=== PATIENT | male | born 1980 | race Two or more races ===

== ENCOUNTER 2021-03-29 19:16 | Inpatient (IN) | payer MEDICAID ==
[~2021-03-29] VITALS: Ht 170.2 cm; Wt 51.5 kg
--- NOTE | 2021-03-29 19:25 | NUR ---
PT BIB [facility] FROM HOME FOR 1 MONTH OF INTERMITTENT COUGH, FEVER AND WEAKNESS. A/O X3. NO SOB OR LABORED BREATHING, AFEBRILE. CLEAER SPEECH, COMPLETE SENTENCES.
--- NOTE | 2021-03-29 20:00 | NUR ---
DR. PASTOR AT BEDSIDE, MSE IN PROGRESS.
[2021-03-29] MEDS ORDERED: IV NORMAL SALINE 1000 ML BAG IV ONE (20:30)
[2021-03-29 20:45] LABS: MEAN CORPUSCULAR HEMOGLOBIN 26.3 uug (23.8-33.4); MEAN CORPUSCULAR VOLUME 77.3 fL (73.0-96.2); PLATELET COUNT (AUTO) 376 K/uL (152-348)
[2021-03-29 20:49] LABS: HEMATOCRIT 19.6 % (36.7-47.1)
[2021-03-29 20:52] LABS: CREATININE 0.8 mg/dL (0.6-1.3); POTASSIUM 4.1 mmol/L (3.5-5.1)
[2021-03-29 21:04] LABS: BILIRUBIN,DIRECT 0.1 mg/dL (0.0-0.2); BILIRUBIN,TOTAL 0.2 mg/dL (0.2-1.0); TOTAL PROTEIN, SERUM 6.8 g/dL (6.4-8.2)
[2021-03-29] MEDS ORDERED: ACETAMINOPHEN ES 500 MG TABLET PO ONE (21:15)
[2021-03-29] MEDS ORDERED: levoFLOXacin 750 MG/D5W 150 ML PIGGYBACK IV ONE (21:15)
[2021-03-29] MEDS ORDERED: ACETAMINOPHEN ES 500 MG TABLET ONE (21:16)
[2021-03-29] MEDS ORDERED: levoFLOXacin 750 MG TABLET ONE (21:16)
[2021-03-29] MEDS ORDERED: levoFLOXacin 750MG/D5W 150 ML IV ONE (21:20)
--- NOTE | 2021-03-29 21:39 | NUR ---
PANEL CALL, DR. GRANADOS PAGED.
[2021-03-29] MEDS ORDERED: DOXYCYCLINE HYCLATE IV 100 MG in IV DEXTROSE 5% 100 ML IV SCH (22:00)
[2021-03-29] MEDS ORDERED: SULFAMETHOXAZOL/TRIMETHOPRI IV 20 ML in IV DEXTROSE 5% 500 ML IV SCH (22:00)
[2021-03-29] MEDS ORDERED: MORPHINE SULFATE 2 MG/1 ML DISP.SYRIN IV PRN (22:00)
[2021-03-29] MEDS ORDERED: CEFEPIME HCL 2 G in IV DEXTROSE 5% 100 ML IV SCH (22:00)
[2021-03-29] MEDS ORDERED: ONDANSETRON 4 MG/2 ML VIAL IV PRN (22:00)
[2021-03-29] MEDS ORDERED: hydrALAZINE HCL 20 MG/1 ML VIAL IV PRN (22:00)
[2021-03-29] MEDS ORDERED: LABETALOL HCL 100 MG/20 ML VIAL IV PRN (22:00)
[2021-03-29 22:14] LABS: BASOPHILS % (MANUAL) 1 % (0-2); EOSINOPHILS % (MANUAL) 1 % (0-8); LYMPHOCYTES % (MANUAL) 15 % (20-40); MONOCYTES % (MANUAL) 13 % (2-10); NEUTROPHILS % (MANUAL) 70 % (42-75)
[2021-03-29 22:41] LABS: FERRITIN 693 ng/mL (26-388); LACTATE DEHYDROGENASE 304 U/L (85-227)
[2021-03-29 23:06] LABS: *BILIRUBIN,URIN NEGATIVE (NEGATIVE); *BLOOD, URINE NEGATIVE (NEGATIVE); *CLARITY,URINE CLEAR (CLEAR); *COLOR,URINE YELLOW (YELLOW); *KETONES,URINE NEGATIVE (NEGATIVE); LEUKOCYTE ESTERASE ,URINE NEGATIVE (NEGATIVE); NITRITE, URINE NEGATIVE (NEGATIVE); UGLUCOSE NEGATIVE (NEGATIVE)
[2021-03-29] MEDS ORDERED: ALBUTEROL SULFATE 2.5 MG/3 ML NEBU NEB PRN (23:15)
[2021-03-29] MEDS ORDERED: VANCOMYCIN IV 1,000 MG in IV DEXTROSE 5% 250 ML IV ONE (23:30)
[2021-03-30] VITALS (8 sets, daily range): BP systolic 89–118; BP diastolic 48–74
[2021-03-30 00:02] LABS: BILIRUBIN,DIRECT 0.1 mg/dL (0.0-0.2); BILIRUBIN,TOTAL 0.3 mg/dL (0.2-1.0); TOTAL PROTEIN, SERUM 6.3 g/dL (6.4-8.2)
[2021-03-30] MEDS ORDERED: FLUCONAZOLE 200 MG/100 ML PIGGYBACK ONE (00:21)
[2021-03-30] MEDS ORDERED: DOXYCYCLINE HYCLATE 100 MG INJ IV ONE (00:21)
[2021-03-30] MEDS ORDERED: CEFEPIME HCL 1 G VIAL ONE (00:21)
[2021-03-30] MEDS ORDERED: VANCOMYCIN IV 200 ML ONE (00:22)
[2021-03-30 00:30] LABS: IRON, SERUM 10 ug/dL (50-175)
--- NOTE | 2021-03-30 00:30 | NUR ---
GAVE REPORT TO CARMEN DIAMOND.
--- NOTE | 2021-03-30 00:55 | NUR ---
Pt. admitted to CCU Bed 1 , under care of Dr. Marino Dx: Anemia/ PNA Belongs List completed
--- NOTE | 2021-03-30 01:05 | NUR ---
Received patient from ER via [facility]. Patient is alert and oriented x4, currently on room air. Sinus rhythm on the monitor, no SOB or signs of distress, but has a dry cough. Patient has a very thin, wasting appearance, stating he has lost 30 pounds over the past 30 days, having not been eating well due to fever lasting the last 30-40 days. Patient is very weak, not having the strength to even stand or ambulate on his own power anymore. Patient has a new diagnosis of HIV, and has a history of Hepatitis C infection.
[2021-03-30] MEDS: FLUCONAZOLE 200 MG/NS 100ML IV 200 MG in PREMIXED 1 EACH IV SCH ×2 (01:28→22:37)
[2021-03-30] MEDS: IV NS 1000 ML 1,000 ML IV SCH ×4 (01:31→23:20)
[2021-03-30] MEDS: DOXYCYCLINE HYCLATE IV 100 MG in IV DEXTROSE 5% 100 ML IV SCH ×3 (02:36→21:10)
--- NOTE | 2021-03-30 04:00 | NUR ---
Patient has had 2 episodes of diarrhea with frequent abdominal cramping and hyperactive bowel sounds. Stool watery and brown with foul smell. Sample sent to the lab for C. Diff assay.
[2021-03-30 05:25] LABS: MEAN CORPUSCULAR HEMOGLOBIN 27.1 uug (23.8-33.4); MEAN CORPUSCULAR VOLUME 79.3 fL (73.0-96.2); PLATELET COUNT (AUTO) 340 K/uL (152-348)
[2021-03-30 05:33] LABS: BILIRUBIN,TOTAL 0.4 mg/dL (0.2-1.0); CREATININE 0.8 mg/dL (0.6-1.3); PHOSPHOROUS 3.2 mg/dL (2.5-4.9); POTASSIUM 3.8 mmol/L (3.5-5.1); TOTAL PROTEIN, SERUM 6.4 g/dL (6.4-8.2)
[2021-03-30] MEDS ORDERED: CEFEPIME HCL 1 G in IV DEXTROSE 5% 50 ML IV SCH (06:00)
--- NOTE | 2021-03-30 07:20 | NUR ---
Patient transferred up to third floor telemetry room 329. Patient remains in stable condition, SR on the monitor, 99% on room air, A/O x4, no SOB or signs of distress. Chart and belongings accompanied the patient. Report given to day shift nurse.
[2021-03-30] MEDS ORDERED: VANCOMYCIN IV 1,000 MG in IV DEXTROSE 5% 250 ML IV SCH (09:00)
[2021-03-30] MEDS: FLUTICASONE/VILANTEROL 1 EACH BLST.W.DEV INH SCH (09:49)
[2021-03-30] MEDS ORDERED: ALBUMIN HUMAN 25% 100 ML IV SCH ×2 (10:00)
[2021-03-30] MEDS ORDERED: CEFTRIAXONE 2 G VIAL IM SCH (13:15)
[2021-03-30] MEDS: CEFTRIAXONE 2 G in IV DEXTROSE 5% 100 ML IV SCH (14:58)
[2021-03-30] MEDS ORDERED: VANCOMYCIN IV 750 MG in IV DEXTROSE 5% 250 ML IV SCH (16:00)
--- NOTE | 2021-03-30 16:43 | NUR ---
Pt was no NPO. Pt will be NPO after midnight. Will do abdomen us tmrw morning
[2021-03-30 18:00] LABS: HEMATOCRIT 20.8 % (36.7-47.1)
--- NOTE | 2021-03-30 20:00 | NUR ---
Received patient lying in bed. Family at bedside. AAOx4. Mainly Belarusian speaking. In no apparent distress. Temp at 102.7 orally. Cooling measure provided. Will continue to monitor temp. IV site on right AC and Left FA intact and patent. IVF infusing. NSR on tele with HR of 86/min. Needs assessed and attended to. Safety measure initiated and call light within reached.
[2021-03-30] MEDS: ACETAMINOPHEN 325 MG TABLET PO PRN (21:33)
--- NOTE | 2021-03-30 21:56 | NUR ---
Dr Hill made aware of Hbg 7.1 level at 1700 and informed that another blood draw to be done at this time. Dr. Hill with order to cancel blood draw of H&H at 2200 eber just draw at 03/31/21 0600. Order noted. planning technician made aware.
[2021-03-31] VITALS: BP 99/60
[2021-03-31 04:15] VITALS: BP 94/63
--- NOTE | 2021-03-31 06:14 | NUR ---
Patient slept well last night. Afebrile at this time. In no acute distress. IV site on right AC and Left FA intact and patent. IVF infusing. No adverse reaction noted from IV antibiotics. NPO status for abdominal US this AM. NSR on tele with HR of 75/min. Needs attended to and met. Safety measure maintained and call light within reached.
[2021-03-31] MEDS: IV NS 1000 ML 1,000 ML IV SCH ×2 (06:17→15:30)
[2021-03-31 06:54] LABS: HEMATOCRIT 24.5 % (36.7-47.1)
[2021-03-31 08:30] VITALS: BP 104/69
[2021-03-31] MEDS: FLUTICASONE/VILANTEROL 1 EACH BLST.W.DEV INH SCH (09:42)
[2021-03-31] MEDS: DOXYCYCLINE HYCLATE IV 100 MG in IV DEXTROSE 5% 100 ML IV SCH ×2 (09:42→21:26)
[2021-03-31 11:06] LABS: *EBV AB VCA IGM 41.3 U/mL (0.0-35.9)
[2021-03-31 11:40] VITALS: BP 104/69
--- NOTE | 2021-03-31 12:07 | NUR ---
Pt is a/o x 4. placed on clear liquid diet post abdominal ultrasound per Dr. Kwon's order. currently sinus rhythm on tele, no signs of acute distress or discomfort. Received IV antibiotics, tolerated well. No complaint of SOB or pain at this time. Will continue to monitor.
[2021-03-31] MEDS: CEFTRIAXONE 2 G in IV DEXTROSE 5% 100 ML IV SCH (14:44)
[2021-03-31 16:29] VITALS: BP 142/73
--- NOTE | 2021-03-31 18:19 | NUR ---
Pt is awake, resting in bed with family at bedside. No signs of acute distress or discomfort. Provided cooling measures (icepack) for pt due to temperature being 99.4. Pt did not want to take acetaminophen at this time. Pt continues to receive IV fluids NS running at 125cc/hr on the left forearm 18g and IV antibiotics. Pt continues to be on clear liquid diet. Abdominal ultrasound resulted with multiple gall stones present. STD panel still pending. Pt presents with normal sinus rhythm on tele at this time. Call light is within reach, comfort measures provided. No complaint of pain or discomfort. Will endorse to hall tender RN.
--- NOTE | 2021-03-31 19:30 | NUR ---
Received patient lying in bed. AAOx4. In no apparent distress. Afebrile. IV site on right AC and Left FA intact and patent. IVF infusing. NSR on tele with HR of 90/min. Needs assessed and attended to. Safety measure initiated and call light within reached.
[2021-03-31 20:35] VITALS: BP 104/69
[2021-03-31] MEDS: FLUCONAZOLE 200 MG TABLET PO SCH (22:47)
[2021-04-01 00:10] VITALS: BP 115/75
[2021-04-01 04:40] VITALS: BP 126/72
--- NOTE | 2021-04-01 06:26 | NUR ---
Patient slept well last night. Denies any pain or discomfort. IV site on right AC and Left FA intact and patent. IVF infusing. No adverse reaction noted from IV antibiotics. NSR on tele with HR of 78/min. Needs attended to and met. Safety measure maintained and call light within reached.
[2021-04-01] MEDS: FLUTICASONE/VILANTEROL 1 EACH BLST.W.DEV INH SCH (08:33)
[2021-04-01] MEDS: DOXYCYCLINE HYCLATE IV 100 MG in IV DEXTROSE 5% 100 ML IV SCH ×2 (08:50→20:16)
[2021-04-01 09:07] LABS: HEPATITIS A AB, TOTAL Positive (Negative); HEPATITIS B SURFACE AG Negative (Negative)
[2021-04-01 11:23] VITALS: BP 116/77
[2021-04-01 15:15] VITALS: BP 115/65
[2021-04-01] MEDS: CEFTRIAXONE 2 G in IV DEXTROSE 5% 100 ML IV SCH (15:28)
--- NOTE | 2021-04-01 18:23 | NUR ---
Pt is a/o x 4, family at bedside. Pt is not in any acute distress or discomfort, did not present with fever today. Pt had a rectal and oral swab done today for chlamydia and gonorrhea, pending results. Pt continues to be on clear liquid diet. No complaint of pain at this time. All medications given and tolerated well. Comfort measures provided, call light within reach. Will endorse to night custodian RN.
--- NOTE | 2021-04-01 19:42 | NUR ---
Received patient lying in bed. AAOx4. In no apparent distress. IV site on right AC and Left FA intact and patent. NSR on tele with HR of 76/min. Needs assessed and attended to. Safety measure initiated and call light within reached.
[2021-04-01 20:35] VITALS: BP 114/72
[2021-04-01] MEDS: FLUCONAZOLE 200 MG TABLET PO SCH (21:07)
[2021-04-02 00:15] VITALS: BP 107/71
[2021-04-02 04:35] VITALS: BP 102/68
--- NOTE | 2021-04-02 06:19 | NUR ---
Patient slept well last night. No complain of pain or SOB. IV site on right AC and Left FA intact and patent. No adverse effect noted from IV antibiotics. NSR on tele with HR of 67/min. Needs attended to and met. Safety measure maintained and call light within reached.
[2021-04-02] MEDS: FLUTICASONE/VILANTEROL 1 EACH BLST.W.DEV INH SCH (09:05)
[2021-04-02] MEDS: DOXYCYCLINE HYCLATE IV 100 MG in IV DEXTROSE 5% 100 ML IV SCH ×2 (09:05→20:05)
[2021-04-02 10:28] LABS: HEMATOCRIT 24.3 % (36.7-47.1); MEAN CORPUSCULAR HEMOGLOBIN 26.3 uug (23.8-33.4); MEAN CORPUSCULAR VOLUME 78.8 fL (73.0-96.2); PLATELET COUNT (AUTO) 423 K/uL (152-348)
[2021-04-02 11:05] VITALS: BP 109/75
[2021-04-02 11:08] LABS: BILIRUBIN,TOTAL 0.3 mg/dL (0.2-1.0); CREATININE 0.8 mg/dL (0.6-1.3); POTASSIUM 3.5 mmol/L (3.5-5.1); TOTAL PROTEIN, SERUM 6.8 g/dL (6.4-8.2)
[2021-04-02] MEDS: CEFTRIAXONE 2 G in IV DEXTROSE 5% 100 ML IV SCH (13:24)
[2021-04-02 14:58] VITALS: BP 101/62
[2021-04-02 16:56] LABS: HEPATITIS B SURFACE AG Negative; HEPATITIS Be ANTIGEN Negative
--- NOTE | 2021-04-02 19:30 | NUR ---
Patient resting in bed. AOx3-4. On room air. No signs of acute distress. Afebrile. Compliant with medications and care. Needs anticipated and met. Call light within reach. Will endorse to incoming shift for continuity of care.
[2021-04-02 20:45] VITALS: BP 116/74
[2021-04-02] MEDS: FLUCONAZOLE 200 MG TABLET PO SCH (21:36)
[2021-04-03 00:25] VITALS: BP 103/65
[2021-04-03 04:55] VITALS: BP 109/69
--- NOTE | 2021-04-03 05:50 | NUR ---
Patient slept intermittently throughout the night, AO x4, sinus rhythm of 90 bpm on cardiac tele monitor, Iv intact and patent, patient is able to state his needs, needs has been met, medication and antibiotics given and tolerated well. Call lights within reach, safety measures maintained. will endorse to am shift.
--- NOTE | 2021-04-03 07:20 | NUR ---
Received patient resting in bed. AOx3-4. NSR on awake overnight monitor. On room air. No signs of acute distress. Patient denies pain/ discomfort. IV access patent and intact. Call light within reach. Will continue to monitor.
[2021-04-03] MEDS: FLUTICASONE/VILANTEROL 1 EACH BLST.W.DEV INH SCH (09:11)
[2021-04-03 11:23] VITALS: BP 114/76
[2021-04-03 15:40] VITALS: BP 109/72
--- NOTE | 2021-04-03 18:40 | NUR ---
Patient AOx4. On room air. No signs of acute distress. NSR on school bus monitor. Patient denies pain/ discomfort. Compliant with medications and care. Patient verbalized he wants to be discharged. MD aware. Call light within reach. Will endorse to incoming shift.
--- NOTE | 2021-04-03 19:30 | NUR ---
Received patient in bed. AAO x4. ABle to make needs known. Denies any pain or discomfort, no SOB. In no acute distress. Left FA [address], patent and intact. Needs assessed and attended. Safety measures initiated.
[2021-04-03 20:15] VITALS: BP 119/60
[2021-04-03] MEDS: FLUCONAZOLE 200 MG TABLET PO SCH (21:25)
[2021-04-04 00:09] VITALS: BP 123/63
[2021-04-04 04:09] VITALS: BP 118/67
--- NOTE | 2021-04-04 06:08 | NUR ---
Patient slept well. No significant events this shift. AAO x4. Able to make needs known. Denies any pain or discomfort. On RA, no SOB. PO fluids and snacks encouraged, has poor appetite. In no acute distress. Left FA [address], patent and intact. Needs assessed and attended. Safety measures continued. call light within reach. Addendum: 04/04/21 at 0614 by CASSIE WAN RN TELE- NSR, HR 80.
[2021-04-04] MEDS: FLUTICASONE/VILANTEROL 1 EACH BLST.W.DEV INH SCH (08:49)
[2021-04-04 11:00] VITALS: BP 119/72
[2021-04-04 16:00] VITALS: BP 115/71
--- NOTE | 2021-04-04 19:47 | NUR ---
Received with visitor at bedside .
[2021-04-04 20:24] VITALS: BP 103/73
[2021-04-04] MEDS: FLUCONAZOLE 200 MG TABLET PO SCH (21:40)
[2021-04-05 00:27] VITALS: BP 98/62
[2021-04-05] MEDS: ACETAMINOPHEN 325 MG TABLET PO PRN (00:36)
--- NOTE | 2021-04-05 00:40 | NUR ---
tylenol dose given,temp 100.1.sleeping intermittently
[2021-04-05 04:34] VITALS: BP 99/57
--- NOTE | 2021-04-05 06:10 | NUR ---
dietary consult as the patient weight is decreasing
--- NOTE | 2021-04-05 07:17 | NUR ---
report given to the day shift rn that the patient is for referal to a clinic for help and awaiting for the std report
[2021-04-05] MEDS: FLUTICASONE/VILANTEROL 1 EACH BLST.W.DEV INH SCH (09:14)
--- NOTE | 2021-04-05 10:06 | NUR ---
Received pt. Pt is a/o x 4, presents with normal sinus rhythm, no temperature this am. Pt is pending for nutrition consult due to reported weight loss on daily weight. MD notified. Pt does not complain of pain, no signs of acute distress or discomfort. Pt had his breakfast, no complaint of decreased appetite. Comfort measures provided, call light within reach. Will continue to monitor pt.
[2021-04-05 11:04] VITALS: BP 108/54
--- NOTE | 2021-04-05 14:41 | NUR ---
Clinical Social Work Note Social work consult was requested in view of patients recent diagnosis of HIV. SW met with patient to provide HIV resources as well as education. Patient is a 40 year old male who is alert and oriented x4. Patient appeared in a reflective mood with euthymic affect. Patient was able to engage in a meaningful conversation with food preparation worker about why he was brought to the hospital. Patient stated he is knowledgeable about HIV and he is knows about the virus. Patient stated that when he found out he was HIV positive he was shocked but he has is now prepared to start treatment. Patient stated that his family is now aware and that they have been supportive. Patient stated that he is willing to adapt his life to this new diagnosis. ZACHARY provided patient with HIV educational pamphlets and resources such as the [facility], [facility], [address] [place] [address] [address], [place], [place] [id number] . Patient accepted resources from ZACHARY.
[2021-04-05 15:22] VITALS: BP 135/68
--- NOTE | 2021-04-05 18:05 | NUR ---
Pt has been discharged via private car. Pt was ambulatory, walked down to private car with his father. Pt is a/o x 4, no temperature, no complaint of pain or signs of acute distress. All discharge education and materials at patient's hand. Pt has an appointment for an outpatient HIV clinic. All personal belongingds at hand and signed for.
[2021-04-07 04:06] LABS: *BASOS 1 % (Not Estab.); *EOS 0 % (Not Estab.); *HCT 34.4 % (37.5-51.0); *HGB 10.7 g/dL (13.0-17.7); *IMMATURE GRANULOCYTES 0.1 x10E3/uL (0.0-0.1); *IMMATURE GRANULOCYTES 2 % (Not Estab.); *LYMPHOCYTES 18 % (Not Estab.); *MCH 25.5 pg (26.6-33.0); *MCHC 31.1 g/dL (31.5-35.7); *MCV 82 fL (79-97); *MONOCYTES 7 % (Not Estab.); *MONOCYTES ABSOLUTE 0.4 x10E3/uL (0.1-0.9); *NEUTROPHILS 72 % (Not Estab.); *NEUTROPHILS ABSOLUTE 3.7 x10E3/uL (1.4-7.0); *PLT 568 x10E3/uL (150-450); *RBC 4.19 x10E6/uL (4.14-5.80); *RDW 15.8 % (11.6-15.4); *WBC 5.2 x10E3/uL (3.4-10.8)
[2021-04-08 04:06] LABS: *HELPER T-LYMPH MARKR(CD4)ABSO 84 /uL (359-1519); *HELPER T-LYNPH MARKER CD4)% 8.4 % (30.8-58.5)
[2021-04-08 14:24] LABS: *EBV AB VCA IGG >600.0
== END 2021-04-05 18:00 | disposition home or self-care (01) | DRG 890 ==
LOC: ER 19:19 → TRANSITION 22:52 → CCU 03-30 00:18 → MEDSURG3 03-30 06:57 → TELE3 03-30 08:15 → MEDSURG3 04-05 10:40
PROVIDERS: ADMIT Internal Medicine; ATTEND Internal Medicine
PROC: 30233N1 Transfusion of Nonautologous Red Blood Cells into Peripheral Vein, Percutaneous Approach (ICD-10-PCS; principal; 2021-03-30)
DX: B20 Human immunodeficiency virus [HIV] disease (principal); B10.09 Other human herpesvirus encephalitis; A41.9 Sepsis, unspecified organism; R65.20 Severe sepsis without septic shock; J18.9 Pneumonia, unspecified organism; B37.0 Candidal stomatitis; R64 Cachexia; E87.1 Hypo-osmolality and hyponatremia; E86.0 Dehydration; D64.9 Anemia, unspecified; B89 Unspecified parasitic disease; B27.09 Gammaherpesviral mononucleosis with other complications; B27.00 Gammaherpesviral mononucleosis without complication; D75.839 Thrombocytosis, unspecified; R74.01 Elevation of levels of liver transaminase levels; K62.0 Anal polyp; K80.20 Calculus of gallbladder without cholecystitis without obstruction; Z68.1 Body mass index [BMI] 19.9 or less, adult
CPT/HCPCS: 36415; 70030-TC; 71045; 76700; 83550; 83605; 83615; 84100; 85018; 85025; 85730; 86361; 86480; 86592; 86644; 86645; 86704; 86705; 86706; 86708; 86780; 86803; 86850; 86900; 86901; 86920; 87040; 87086; 87340; 87350; 87400; 87536; 87806; 93005; A4663; A9150; G0378; J0692; J0696; J1450; J1956; J3370; J3490; J7030; J7040; J7050; J7060; P9016; P9047

== ENCOUNTER 2021-04-14 07:05 | Inpatient (IN) | payer MEDICAID ==
[~2021-04-14] VITALS: Ht 167.6 cm; Wt 51.5 kg
[2021-04-14] MEDS ORDERED: AZITHROMYCIN 250 MG TABLET PO ONE (08:00)
[2021-04-14] MEDS ORDERED: DEXAMETHASONE SOD PHOSPHATE 4 MG INJ IV ONE (08:00)
[2021-04-14] MEDS ORDERED: IV NORMAL SALINE 1000 ML BAG IV ONE (08:00)
[2021-04-14] MEDS ORDERED: CEFTRIAXONE 1 G in IV DEXTROSE 5% 50 ML IV ONE (08:00)
[2021-04-14] MEDS ORDERED: AZITHROMYCIN 250 MG TABLET ONE (08:06)
[2021-04-14] MEDS ORDERED: DEXAMETHASONE SOD PHOSPHATE 10 MG INJ ONE (08:06)
[2021-04-14] MEDS ORDERED: CEFTRIAXONE /D5W 50ML IVPB **ER PYXIS IV ONE (08:06)
[2021-04-14 08:10] LABS: HEMATOCRIT 22.8 % (36.7-47.1); MEAN CORPUSCULAR HEMOGLOBIN 26.7 uug (23.8-33.4); MEAN CORPUSCULAR VOLUME 78.3 fL (73.0-96.2); PLATELET COUNT (AUTO) 377 K/uL (152-348)
[2021-04-14 08:18] LABS: CREATININE 0.8 mg/dL (0.6-1.3); POTASSIUM 3.6 mmol/L (3.5-5.1)
[2021-04-14 08:30] LABS: BILIRUBIN,DIRECT 0.1 mg/dL (0.0-0.2); BILIRUBIN,TOTAL 0.3 mg/dL (0.2-1.0); TOTAL PROTEIN, SERUM 7.6 g/dL (6.4-8.2)
[2021-04-14 08:31] LABS: *BILIRUBIN,URIN NEGATIVE (NEGATIVE); *BLOOD, URINE NEGATIVE (NEGATIVE); *CLARITY,URINE CLEAR (CLEAR); *COLOR,URINE YELLOW (YELLOW); *KETONES,URINE NEGATIVE (NEGATIVE); *UROBILINOGEN,URINE 0.2 E.U./dl (NORMAL); LEUKOCYTE ESTERASE ,URINE NEGATIVE (NEGATIVE); NITRITE, URINE NEGATIVE (NEGATIVE); UGLUCOSE NEGATIVE (NEGATIVE)
--- NOTE | 2021-04-14 08:37 | NUR ---
Saline lock placed, medications administered, labs drawn/collected, EKG done as soon as manager monitoring became available. Pt stable in fowlers position in [facility], in [facility] at this time.
--- NOTE | 2021-04-14 09:19 | NUR ---
1L fluid complete, tolerated well. Pt states improvement in S/S.
--- NOTE | 2021-04-14 09:51 | NUR ---
1.6L hydration Tx complete. Pt in stable condition.
[2021-04-14] MEDS ORDERED: MAGNESIUM HYDROXIDE 30 ML LIQUID UDC PO PRN (13:15)
[2021-04-14] MEDS ORDERED: Z GUARD REMEDY PASTE 57 GM TUBE TOP PRN (13:15)
[2021-04-14] MEDS ORDERED: NYSTATIN SUSPENSION 5 ML LIQUID UDC PO SCH (14:00)
[2021-04-14] MEDS: SULFAMETHOXAZOL/TRIMETHOPRI IV 10 ML in IV DEXTROSE 5% 250 ML IV SCH ×2 (15:15→21:42)
--- NOTE | 2021-04-14 16:53 | NUR ---
Bactrim IV complete. Pt in stable condition. VSS
--- NOTE | 2021-04-14 17:19 | NUR ---
Bed assignment received, 318, nurse Caitlin. Nurse not available at the moment. Will call me back once she is available.
--- NOTE | 2021-04-14 18:29 | NUR ---
Report given to AILEEN Tucker. Will transport pt to 318.
--- NOTE | 2021-04-14 18:50 | NUR ---
pt brought up to med/surg floor. will endorse to oncoming nurse
--- NOTE | 2021-04-14 20:00 | NUR ---
Received patient in bed, benson fowlers position. Is arabic speaking. States he has been coughing for a couple of days and came in to the ER because it was not getting better. States he was beginning to have back and abdominal pain from the coughing but he is not in pain anymore. He expresses concerns for HIV treatment plan. Will refer to case management. Afebrile, Denies any SOB, is on RA. Needs attended and met. Call light within reach.
[2021-04-14 20:30] VITALS: BP 105/66
[2021-04-14] MEDS: NYSTATIN SUSPENSION 5 ML LIQUID UDC PO SCH (21:43)
[2021-04-14] MEDS: IV NS 1000 ML 1,000 ML IV PRN (21:43)
[2021-04-15] MEDS: NYSTATIN SUSPENSION 5 ML LIQUID UDC PO SCH ×4 (00:26→17:57)
[2021-04-15 04:20] VITALS: BP 100/64
[2021-04-15] MEDS: SULFAMETHOXAZOL/TRIMETHOPRI IV 10 ML in IV DEXTROSE 5% 250 ML IV SCH ×3 (05:24→21:01)
[2021-04-15 06:48] LABS: HEMATOCRIT 24.7 % (36.7-47.1); MEAN CORPUSCULAR HEMOGLOBIN 25.9 uug (23.8-33.4); MEAN CORPUSCULAR VOLUME 79.4 fL (73.0-96.2); PLATELET COUNT (AUTO) 405 K/uL (152-348)
--- NOTE | 2021-04-15 06:50 | NUR ---
Patient awake most of the night, Still noted with coughing, no SOB, on RA. No significant changes this shift. All needs assessed and met. Call light within reach.
[2021-04-15 07:05] LABS: CREATININE 0.8 mg/dL (0.6-1.3); PHOSPHOROUS 3.4 mg/dL (2.5-4.9); POTASSIUM 3.9 mmol/L (3.5-5.1)
[2021-04-15 11:00] VITALS: BP 97/53
[2021-04-15] MEDS: IV NS 1000 ML 1,000 ML IV PRN (15:06)
[2021-04-15 16:02] VITALS: BP 97/61
--- NOTE | 2021-04-15 18:52 | NUR ---
Patient remained pleasant and cooperative throughout shift. Medications administered as due, tolerated well. Left AC IV 20g patent and intact, running NS @75cc/hr. Non-productive, dry cough noted. No c/o pain/ discomfort verbalized. On room air, saturating 98-99%. Assisted with needs, call light within reach. Will endorse accordingly
--- NOTE | 2021-04-15 20:00 | NUR ---
Patient in room with father and sister at bedside. Noted with severe cough and SOB. 02 sats at 95% on RA. Placed on 2L/min via NC, 02 sats increased to 98%. Paged Dr. Lujan for severe cough and HR of 118-123. with new orders for PRN Robitussin AC.
[2021-04-15 20:48] VITALS: BP 104/62
[2021-04-15] MEDS: GUAIFENESIN/CODEINE 5 ML LIQUID UDC PO PRN (21:01)
--- NOTE | 2021-04-15 22:00 | NUR ---
Spoke to Dr. Butterfield. Requested for Pneumocystis carini detection to be done STAT and place patient on NPO at 6am for possible Bronchoscopy tomorrow. Spoke with Bonita at lab who states that lab is sent to [facility] and she will call to let them know request to do lab STAT. Patient is aware. SOB and cough is relieved with Robitissin AC at this time.
[2021-04-16] MEDS: NYSTATIN SUSPENSION 5 ML LIQUID UDC PO SCH ×5 (00:22→23:19)
[2021-04-16 04:30] VITALS: BP 96/59
[2021-04-16] MEDS: SULFAMETHOXAZOL/TRIMETHOPRI IV 10 ML in IV DEXTROSE 5% 250 ML IV SCH ×3 (05:59→21:03)
[2021-04-16] MEDS: GUAIFENESIN/CODEINE 5 ML LIQUID UDC PO PRN (06:09)
--- NOTE | 2021-04-16 06:53 | NUR ---
Patient slept comfortably, occasional cough still noted along with SOb. Remains on 2L 02 via NC, sating 100%. No other significant events this shift. Call light within reach.
[2021-04-16] MEDS: IV NS 1000 ML 1,000 ML IV PRN (09:11)
[2021-04-16 11:15] VITALS: BP 100/64
[2021-04-16] MEDS: ACETAMINOPHEN 325 MG TABLET PO PRN (11:19)
[2021-04-16 15:35] VITALS: BP 100/47
[2021-04-16] MEDS: CEFTRIAXONE 1 G in IV DEXTROSE 5% 50 ML IV SCH (18:42)
[2021-04-16] MEDS: AZITHROMYCIN 250 MG TABLET PO SCH (19:34)
[2021-04-16 20:56] VITALS: BP 107/60
[2021-04-17] MEDS: IV NS 1000 ML 1,000 ML IV PRN ×2 (00:24→23:56)
[2021-04-17 04:49] VITALS: BP 101/56
[2021-04-17] MEDS: NYSTATIN SUSPENSION 5 ML LIQUID UDC PO SCH ×3 (05:19→17:30)
[2021-04-17] MEDS: SULFAMETHOXAZOL/TRIMETHOPRI IV 10 ML in IV DEXTROSE 5% 250 ML IV SCH ×3 (05:21→21:28)
[2021-04-17 08:00] VITALS: BP 97/56
[2021-04-17 12:07] VITALS: BP 99/66
[2021-04-17 16:01] VITALS: BP 111/62
[2021-04-17] MEDS: ACETAMINOPHEN 325 MG TABLET PO PRN (16:10)
--- NOTE | 2021-04-17 16:26 | NUR ---
patient with current t: of 102.6, joe headley notified.
--- NOTE | 2021-04-17 16:26 | NUR ---
RESIDENT REMAINS ON COOLING MEASURES AT THIS TIME, T: 102.6.
[2021-04-17] MEDS: GUAIFENESIN/CODEINE 5 ML LIQUID UDC PO PRN (17:29)
[2021-04-17] MEDS: AZITHROMYCIN 250 MG TABLET PO SCH (17:30)
[2021-04-17] MEDS: CEFTRIAXONE 1 G in IV DEXTROSE 5% 50 ML IV SCH (17:30)
[2021-04-17 20:24] VITALS: BP 95/61
--- NOTE | 2021-04-17 21:21 | NUR ---
Patient in bed AALox4 in apparent distress noted. Temp went down to 98.8. Patient denies pain or discomfort at this time.Iv on left AV with IVF running well.Tolerated well.Administered IV ATb as ordered. no a/r noted.Patient uses urinal with 500 cc urine output. Urine collected and sent to lab.Call light with in reach .Will continue to monitor.
--- NOTE | 2021-04-18 00:12 | NUR ---
Patient awake. No s/s of distress noted. Nystatin suspension wasn't given d/t out of stock in the [facility]. Barrel Lathe Operator Outside made aware.Nystatin not available at this time. Will follow up in A.M.
[2021-04-18 04:21] VITALS: BP 98/63
[2021-04-18] MEDS: NYSTATIN SUSPENSION 5 ML LIQUID UDC PO SCH ×4 (06:00→18:00)
[2021-04-18] MEDS: SULFAMETHOXAZOL/TRIMETHOPRI IV 10 ML in IV DEXTROSE 5% 250 ML IV SCH ×3 (06:05→18:00)
[2021-04-18] MEDS: ACETAMINOPHEN 325 MG TABLET PO PRN ×2 (06:28→18:24)
[2021-04-18 07:14] LABS: HEMATOCRIT 24.5 % (36.7-47.1); MEAN CORPUSCULAR HEMOGLOBIN 26.2 uug (23.8-33.4); MEAN CORPUSCULAR VOLUME 78.4 fL (73.0-96.2); PLATELET COUNT (AUTO) 490 K/uL (152-348)
[2021-04-18 07:29] LABS: CREATININE 0.8 mg/dL (0.6-1.3); PHOSPHOROUS 2.7 mg/dL (2.5-4.9); POTASSIUM 4.5 mmol/L (3.5-5.1)
[2021-04-18 12:00] VITALS: BP 100/50
--- NOTE | 2021-04-18 14:00 | NUR ---
Unable to give 1400 bactrim secondary to No IV access. Attempted IV start x 2 unsuccessful. Per Shreya Fritz Ok to have midline started. Nursing stock broker supervisor states that MIdline nurse will come at 1500.
[2021-04-18 16:47] VITALS: BP 106/58
--- NOTE | 2021-04-18 18:00 | NUR ---
Able to give bactrim IV @ 1800 per pharmacist give next dose @ midnight then @ 600am - accordingly.
[2021-04-18] MEDS: AZITHROMYCIN 250 MG TABLET PO SCH (18:16)
[2021-04-18] MEDS: ONDANSETRON 4 MG/2 ML VIAL IV PRN (18:23)
[2021-04-18] MEDS: GUAIFENESIN/CODEINE 5 ML LIQUID UDC PO PRN (18:24)
[2021-04-18 20:15] VITALS: BP 98/56
[2021-04-19] MEDS: NYSTATIN SUSPENSION 5 ML LIQUID UDC PO SCH ×4 (00:11→17:23)
[2021-04-19] MEDS: SULFAMETHOXAZOL/TRIMETHOPRI IV 10 ML in IV DEXTROSE 5% 250 ML IV SCH ×4 (00:11→21:42)
[2021-04-19] MEDS: GUAIFENESIN/CODEINE 5 ML LIQUID UDC PO PRN (00:12)
[2021-04-19] MEDS: IV NS 1000 ML 1,000 ML IV PRN ×2 (00:12→16:17)
[2021-04-19 04:15] VITALS: BP 103/64
--- NOTE | 2021-04-19 05:00 | NUR ---
Notified dr cohen pt's temp of 101.1 and notified prior temps the other day @ 102 and pt is on bactrim. New order received to do another blood culture. Cooling measures given and tylenol given. Pt's was coughing at times at night - gave rubitussin. pt's nausea managed with zofran. Pt's new midline on left upper arm intact. IVF infusing as ordered.
[2021-04-19] MEDS: ONDANSETRON 4 MG/2 ML VIAL IV PRN (05:52)
[2021-04-19] MEDS: ACETAMINOPHEN 325 MG TABLET PO PRN ×2 (05:54→15:59)
[2021-04-19 07:25] LABS: HEMATOCRIT 22.2 % (36.7-47.1); MEAN CORPUSCULAR HEMOGLOBIN 25.8 uug (23.8-33.4); MEAN CORPUSCULAR VOLUME 76.9 fL (73.0-96.2); PLATELET COUNT (AUTO) 492 K/uL (152-348)
[2021-04-19 07:29] LABS: CREATININE 0.8 mg/dL (0.6-1.3); MAGNESIUM 1.9 mg/dL (1.8-2.4); PHOSPHOROUS 2.8 mg/dL (2.5-4.9); POTASSIUM 4.1 mmol/L (3.5-5.1)
--- NOTE | 2021-04-19 09:00 | NUR ---
DR MINI BOLIVAR HERE TO SEE PATIENT AWARE THAT ZOFRAN IS NOT EFFECTIVE FOR HIS NAUSEA /VOMITING WITH NEW ORDERS AND NOTED.
[2021-04-19] MEDS: METOCLOPRAMIDE HCL 10 MG/2 ML VIAL IV PRN ×2 (10:00→15:58)
--- NOTE | 2021-04-19 10:00 | NUR ---
PATIENT C/O NAUSEA MEDICATED WITH REGLAN A NEW ORDER WAS ALSO SEEN AND EXAMINED BY MINI BOLIVAR
[2021-04-19 11:08] VITALS: BP 102/51
[2021-04-19 15:35] VITALS: BP 126/52
--- NOTE | 2021-04-19 15:58 | NUR ---
PATIENT NOTED TO HAVE VOMITED LIQUIDS YELLOWISH IN COLOR MEDICATED WITH REGLAN HE ALSO C/O HEADACHE TYLENOL GIVEN ALSO AT THIS TIME PATIENT IS REFUSING CARE WAS OFFERED SO MANY TIMES TO CHANGE HIS BED,GOWN AND ASSIST WITH BED BATH BUT PATIENT HAS CONTINUED TO REFUSED CARE.WILL CONTINUE TO OBSERVE AND PROVIDE COMFORT
[2021-04-19 20:19] VITALS: BP 100/57
[2021-04-20 04:25] VITALS: BP 105/64
[2021-04-20] MEDS: SULFAMETHOXAZOL/TRIMETHOPRI IV 10 ML in IV DEXTROSE 5% 250 ML IV SCH ×3 (05:24→21:32)
[2021-04-20] MEDS: NYSTATIN SUSPENSION 5 ML LIQUID UDC PO SCH ×5 (06:33→23:41)
[2021-04-20] MEDS: ACETAMINOPHEN 325 MG TABLET PO PRN (06:59)
[2021-04-20] MEDS: METOCLOPRAMIDE HCL 10 MG/2 ML VIAL IV PRN (07:00)
[2021-04-20 07:36] LABS: HEMATOCRIT 23.5 % (36.7-47.1); MEAN CORPUSCULAR HEMOGLOBIN 26.2 uug (23.8-33.4); MEAN CORPUSCULAR VOLUME 77.2 fL (73.0-96.2); PLATELET COUNT (AUTO) 567 K/uL (152-348)
[2021-04-20 07:49] LABS: CREATININE 0.8 mg/dL (0.6-1.3); MAGNESIUM 1.7 mg/dL (1.8-2.4); PHOSPHOROUS 2.5 mg/dL (2.5-4.9); POTASSIUM 3.8 mmol/L (3.5-5.1)
[2021-04-20] MEDS: IV NS 1000 ML 1,000 ML IV PRN (09:21)
[2021-04-20] MEDS: MAGNESIUM SULFATE/D5W 100 ML IV SCH ×2 (10:07→11:55)
--- NOTE | 2021-04-20 10:15 | NUR ---
MAGNESSIUM LEVEL IS 1.7 WITH NEW REPLACEMENT ORDERS AND NOTED
[2021-04-20] MEDS ORDERED: METOCLOPRAMIDE HCL 10 MG TABLET PO PRN (10:45)
[2021-04-20 12:02] VITALS: BP 97/57
[2021-04-20 16:00] VITALS: BP 106/67
--- NOTE | 2021-04-20 17:11 | NUR ---
PATIENT C/O FEELING NAUSEA MEDICATED WITH REGLAN ORDERED MADE COMFORTABLE IVF IN PROGRESS ORDERED WILL CONTINUE TO OBSERVE.
--- NOTE | 2021-04-20 18:48 | NUR ---
DR MCDANIELSHIS HERE TO SEE PATIENT WITH NO NEW ORDERS AT THIS TIME CALLED THE LAB TO INQUIRE ABOUT THE PNEUMOCYSTIC CARINII SMEAR SPOKE WITH CONG STATED WILL CHECK WITH KT AND WILL CALL US BACK.
--- NOTE | 2021-04-20 18:55 | NUR ---
CONG FROM THE LAB RETURNED CALL AND STATED THAT THEY ARE WAITING FOR LAB [facility] TO RELEASE THE RESULT STATED IT TAKES ABOUT 2 WEEK ONE MORE WEEK WILL REACH OUT TOMORROW.
[2021-04-20 20:00] VITALS: BP 90/55
[2021-04-20] MEDS: POTASSIUM CHLORIDE 20 MEQ in IV NS 1000 ML 1,000 ML IV PRN (21:17)
--- NOTE | 2021-04-20 22:16 | NUR ---
Patient awake and alert able to make needs known.Denies n/v at this time. No s/s of distress noted. Midline on left Ua patent and intact. Started IVF Ns with KCL 20 meq running at 125 ml/Hr.Tolerated well.Patient continue on ATB therapy as ordered. Call light with in reach. Will continue to monitor.
[2021-04-21 04:28] VITALS: BP 107/64
[2021-04-21] MEDS: ACETAMINOPHEN 325 MG TABLET PO PRN ×2 (04:30→20:56)
[2021-04-21] MEDS: SULFAMETHOXAZOL/TRIMETHOPRI IV 10 ML in IV DEXTROSE 5% 250 ML IV SCH ×2 (05:17→13:01)
[2021-04-21] MEDS: NYSTATIN SUSPENSION 5 ML LIQUID UDC PO SCH ×3 (05:17→17:18)
[2021-04-21 05:32] LABS: HEMATOCRIT 22.5 % (36.7-47.1); MEAN CORPUSCULAR HEMOGLOBIN 25.9 uug (23.8-33.4); MEAN CORPUSCULAR VOLUME 76.8 fL (73.0-96.2); PLATELET COUNT (AUTO) 601 K/uL (152-348)
[2021-04-21 05:36] LABS: CREATININE 0.8 mg/dL (0.6-1.3); POTASSIUM 3.8 mmol/L (3.5-5.1)
[2021-04-21 06:01] LABS: MAGNESIUM 1.9 mg/dL (1.8-2.4); PHOSPHOROUS 2.1 mg/dL (2.5-4.9)
[2021-04-21 09:06] LABS: CRYPTOCOCCUS AB, SERUM Positive (Negative)
[2021-04-21] MEDS: POTASSIUM CHLORIDE 20 MEQ in IV NS 1000 ML 1,000 ML IV PRN ×2 (09:41→23:23)
--- NOTE | 2021-04-21 10:32 | NUR ---
Patient lab result cryptococcus antigen in serum reported to attending and dr Butterfield spoke to dr Jaida SY as well
[2021-04-21 11:34] VITALS: BP 98/73
--- NOTE | 2021-04-21 11:53 | NUR ---
patient tolerated bedside spinal tap well, no distress noted
[2021-04-21 12:35] LABS: CSF PROTEIN 47 mg/dL (15-45)
[2021-04-21 12:37] LABS: CSF GLUCOSE 21 mg/dL (40-70)
--- NOTE | 2021-04-21 12:51 | NUR ---
paged dr dominique for lab result CSF glucose result 21
[2021-04-21 16:00] VITALS: BP 104/70
[2021-04-21] MEDS ORDERED: SODIUM PHOSPHATE MM 15 MMOL in IV NORMAL SALINE 250 ML IV ONE (18:00)
--- NOTE | 2021-04-21 18:51 | NUR ---
critical labs for csf WBCs reported to Magdalena from ID
--- NOTE | 2021-04-21 18:53 | NUR ---
Patient alert, oriented x4, no sob, no distress noted
[2021-04-21 20:00] VITALS: BP 112/61
--- NOTE | 2021-04-21 20:45 | NUR ---
Received a call from lab regarding patient's sputum for Pneumocystis wasn't enough. notified and Rt made aware.Instructed patient about the sputum collection and able to collect and sent to lab.
--- NOTE | 2021-04-21 21:06 | NUR ---
CALLED BY NURSING 20:50 - TO ATTEMPT GET GET SPUTUM SAMPLE, PT SPEAKS LITTLE TELUGU , BUT UNDERSTANDS MY REQUEST TO COUGH , GIVEN A CUP TO COUGH IN, NON PROD. AT THIS TIME, REPORTED TO NURSE, PT IS STILL TRYING, TO COUGH UP , PT ON ROOM AIR, NO SOB NOTED .Sandhya FONTANEZP Addendum: 04/21/21 at 210 by BARRETT ESCALANTE RT Amended: Links added.
[2021-04-21] MEDS: SULFAMETH/TRIMETH 800/160 MG TABLET PO SCH (21:10)
[2021-04-22] MEDS: NYSTATIN SUSPENSION 5 ML LIQUID UDC PO SCH ×4 (00:15→18:33)
[2021-04-22 04:00] VITALS: BP 105/61
[2021-04-22] MEDS: SULFAMETH/TRIMETH 800/160 MG TABLET PO SCH ×3 (06:17→21:09)
[2021-04-22 06:32] LABS: HEMATOCRIT 23.2 % (36.7-47.1); MEAN CORPUSCULAR HEMOGLOBIN 25.7 uug (23.8-33.4); MEAN CORPUSCULAR VOLUME 77.3 fL (73.0-96.2); PLATELET COUNT (AUTO) 557 K/uL (152-348)
[2021-04-22] MEDS: POTASSIUM CHLORIDE 20 MEQ in IV NS 1000 ML 1,000 ML IV PRN ×2 (08:20→18:40)
[2021-04-22 09:26] LABS: CREATININE 0.8 mg/dL (0.6-1.3); MAGNESIUM 1.8 mg/dL (1.8-2.4); PHOSPHOROUS 3.9 mg/dL (2.5-4.9); POTASSIUM 3.9 mmol/L (3.5-5.1)
[2021-04-22 10:16] VITALS: BP 113/72
[2021-04-22 16:17] VITALS: BP 112/71
[2021-04-22] MEDS: ACETAMINOPHEN 325 MG TABLET PO PRN (16:35)
[2021-04-22 20:00] VITALS: BP 105/54
[2021-04-23] VITALS (18 sets, daily range): BP systolic 29–151; BP diastolic 16–92
[2021-04-23] MEDS: ACETAMINOPHEN 325 MG TABLET PO PRN ×2 (04:30→21:01)
[2021-04-23] MEDS: POTASSIUM CHLORIDE 20 MEQ in IV NS 1000 ML 1,000 ML IV PRN ×2 (05:03→15:50)
[2021-04-23] MEDS: NYSTATIN SUSPENSION 5 ML LIQUID UDC PO SCH ×4 (05:38→18:00)
[2021-04-23] MEDS: SULFAMETH/TRIMETH 800/160 MG TABLET PO SCH ×3 (05:38→22:00)
[2021-04-23 07:14] LABS: HEMATOCRIT 27.1 % (36.7-47.1); MEAN CORPUSCULAR HEMOGLOBIN 26.1 uug (23.8-33.4); MEAN CORPUSCULAR VOLUME 78.3 fL (73.0-96.2); PLATELET COUNT (AUTO) 611 K/uL (152-348)
--- NOTE | 2021-04-23 07:45 | NUR ---
Received patient awake, alert, oriented x 4, not in any form of distress. He denies any pain or discomfort. Assisted with his needs. Call light and frequently used items placed within patient's reach.
[2021-04-23 07:46] LABS: PHOSPHOROUS 3.6 mg/dL (2.5-4.9); POTASSIUM 4.2 mmol/L (3.5-5.1)
[2021-04-23] MEDS: ENSURE ENLIVE (VAN) 240 ML LIQUID PO SCH (17:00)
--- NOTE | 2021-04-23 17:31 | NUR ---
Patient noted unresponsive to verbal and physical stimuli, vital signs BP 148/94, HR 124, temp 99.5 with agonal breathing. Rapid response called. Spoke to Fermin Lewis DNP, informed him regarding patient's status and ordered to transfer patient to CCU.
--- NOTE | 2021-04-23 17:40 | NUR ---
Transferred patient to [facility] Addendum: 04/23/21 at 2034 by MONA WIGGINS RN RN Report given to Rosy GALLAGHER
[2021-04-23 17:46] LABS: ABG BASE EXCESS -3.2 mmol/L; ABG HCO3 15.1 mmol/L; ABG PCO2 13.5 mmHg (35.0-45.0); ABG PH 7.667 (7.350-7.450); ABG PO2 116.5 mmHg (75.0-100.0); ABG SITE RIGHT RADIAL; ABG TOTAL HEMOGLOBIN 10.2 G/dL (13.5-18.0); COHb 0.1 % (0.5-1.5); MetHb 0.3 % (0.0-1.5); O2Hb 98.6 % (94.0-97.0); VENT MODE Nasal Cannula
--- NOTE | 2021-04-23 18:10 | NUR ---
PT TRANSFERRED FROM MED SURG, POST RAPID RESPONSE, PT IN BED 4, AGONAL BREATHING, HOSPITALIST AT BED SIDE, RT AT BEDSIDE, AND FLOOR RN AT BEDSIDE.
--- NOTE | 2021-04-23 18:20 | NUR ---
PT INTUBATED ET TUBE 7.5, 22AM AT LIPLINE, VENT SETTINGS AT AC12, TV500, PEEP0, [id number]%. PROPOFOL STARTED. WILL CONTINUE TO MONITOR
[2021-04-23] MEDS ORDERED: PROPOFOL 50 ML IV PRN (18:30)
[2021-04-23] MEDS ORDERED: ETOMIDATE 20 MG/10 ML VIAL ONE (19:00)
[2021-04-23] MEDS ORDERED: PROPOFOL 100 ML IV PRN ×2 (19:00)
[2021-04-23] MEDS ORDERED: ETOMIDATE 20 MG/10 ML VIAL IV ONE (19:00)
[2021-04-23] MEDS ORDERED: SUCCINYLCHOLINE CHLORIDE 200 MG/10 ML VIAL ONE (19:00)
[2021-04-23] MEDS ORDERED: SUCCINYLCHOLINE CHLORIDE 200 MG/10 ML VIAL IV ONE (19:00)
--- NOTE | 2021-04-23 20:00 | NUR ---
patient heart rate elevating ST 160s. checked temperature oral 99.9. given rectal tylenol.
[2021-04-23 20:06] LABS: ABG BASE EXCESS -6.1 mmol/L; ABG HCO3 15.4 mmol/L; ABG PH 7.503 (7.350-7.450); ABG PO2 438.8 mmHg (75.0-100.0); ABG SITE LEFT RADIAL; ABG TOTAL HEMOGLOBIN 10.4 G/dL (13.5-18.0); COHb 0.3 % (0.5-1.5); MetHb 0.6 % (0.0-1.5); VENT MODE VENT - A/C; VT, ABG 500 mL
[2021-04-23] MEDS ORDERED: SWABABLE VALVE TRANSFER SET EA MC ONE (20:32)
[2021-04-23] MEDS ORDERED: IOHEXOL 350 100 ML INFUS..BTL ONE (20:32)
[2021-04-23] MEDS ORDERED: IV NORMAL SALINE 250 ML IV ONE (20:32)
--- NOTE | 2021-04-23 21:00 | NUR ---
patient heart rate coming down to low 100s to 110. BP dropped 20's systolic. patient started on bolus and levophed ordered and started. patient pending for picc line placement and stabilize to go to CT scan.
[2021-04-23] MEDS: NOREPINEPHRINE BITARTRATE 8 MG in IV NORMAL SALINE 242 ML IV PRN (21:23)
[2021-04-24] VITALS (89 sets, daily range): BP systolic 64–144; BP diastolic 44–95
[2021-04-24] MEDS ORDERED: IV NS 1000 ML 1,000 ML IV ONE
--- NOTE | 2021-04-24 01:30 | NUR ---
patient getting right upper picc line placement.
[2021-04-24] MEDS ORDERED: NOREPINEPHRINE BITARTRATE 4 MG/4 ML VIAL IV ONE (02:20)
--- NOTE | 2021-04-24 02:30 | NUR ---
patient returned from CT scan with no events. CT of head and chest done.
[2021-04-24] MEDS: NOREPINEPHRINE BITARTRATE 8 MG in IV NORMAL SALINE 242 ML IV PRN (03:00)
[2021-04-24] MEDS: POTASSIUM CHLORIDE 20 MEQ in IV NS 1000 ML 1,000 ML IV PRN (04:03)
--- NOTE | 2021-04-24 05:15 | NUR ---
Maco obregon in the unit looking over CT scans and informed that called radiology department since 3am for reading. radiology called shortly after and spoke to Maco Obregon regarding results. also informed that patient has been diuresing 4l at 2am and currently 3l in the bag since that time. Maco called neuro and will start ddavp. Mannitol was questioned but was not recommended per neuro at this time.
[2021-04-24 05:25] LABS: HEMATOCRIT 29.1 % (36.7-47.1); MEAN CORPUSCULAR HEMOGLOBIN 25.6 uug (23.8-33.4); MEAN CORPUSCULAR VOLUME 78.1 fL (73.0-96.2); PLATELET COUNT (AUTO) 666 K/uL (152-348)
[2021-04-24 05:33] LABS: CREATININE 1.1 mg/dL (0.6-1.3); MAGNESIUM 2.8 mg/dL (1.8-2.4); POTASSIUM 5.7 mmol/L (3.5-5.1)
[2021-04-24] MEDS ORDERED: POTASSIUM CHLORIDE 20 MEQ in IV NS 1000 ML 1,000 ML IV PRN (05:45)
[2021-04-24] MEDS: NYSTATIN SUSPENSION 5 ML LIQUID UDC PO SCH ×5 (06:00→23:19)
[2021-04-24] MEDS: SULFAMETH/TRIMETH 800/160 MG TABLET PO SCH ×3 (06:00→21:51)
[2021-04-24] MEDS ORDERED: Z GUARD REMEDY PASTE 57 GM TUBE TOP PRN (06:00)
[2021-04-24] MEDS: ENSURE ENLIVE (VAN) 240 ML LIQUID PO SCH ×3 (08:06→14:06)
[2021-04-24] MEDS: Z GUARD REMEDY PASTE 57 GM TUBE TOP SCH ×2 (08:07→21:48)
[2021-04-24] MEDS: IV NS 1000 ML 1,000 ML IV PRN ×2 (08:45→22:26)
[2021-04-24] MEDS: DESMOPRESSIN 4 MCG/1 ML VIAL IV SCH ×2 (09:14→21:51)
[2021-04-24] MEDS: FAMOTIDINE. 20 MG/2 ML VIAL IV SCH ×2 (09:15→21:51)
[2021-04-24] MEDS: NOREPINEPHRINE BITARTRATE 32 MG in IV NORMAL SALINE 218 ML IV PRN ×2 (09:42→20:31)
[2021-04-24] MEDS ORDERED: AMPHOTERICIN B LIPOSOME IV SCH (11:00)
[2021-04-24] MEDS ORDERED: DEXTROSE 5% IV SCH ×3 (11:00)
[2021-04-24] MEDS ORDERED: AMPHOTERICIN B IV SCH (11:00)
[2021-04-24] MEDS ORDERED: AMPHOTERICIN B LIPID COMPLEX IV SCH (11:00)
[2021-04-24] MEDS: FLUCYTOSINE 250 MG CAPSULE PO SCH ×3 (11:30→23:19)
[2021-04-24] MEDS ORDERED: CEFTRIAXONE 2 G VIAL IM SCH (11:30)
[2021-04-24] MEDS: AMPHOTERICIN B LIPOSOME IV SCH (11:45)
[2021-04-24] MEDS: DEXTROSE 5% IV SCH (11:45)
[2021-04-24] MEDS ORDERED: CEFTRIAXONE 2 G in IV DEXTROSE 5% 100 ML IV SCH (11:45)
[2021-04-24 11:53] LABS: CREATININE 1.2 mg/dL (0.6-1.3); POTASSIUM 4.8 mmol/L (3.5-5.1)
[2021-04-24] MEDS ORDERED: FLUCYTOSINE PO SCH (12:00)
--- NOTE | 2021-04-24 12:19 | NUR ---
PT.WAS SEEN BY CURTIS.A
[2021-04-24] MEDS: CEFTRIAXONE 2 G in IV DEXTROSE 5% 100 ML IV SCH (14:03)
--- NOTE | 2021-04-24 14:30 | NUR ---
PT.WAS SEEN BY AFTAB ALBERTO DO
--- NOTE | 2021-04-24 15:06 | NUR ---
PT.WAS SEEN BY ARIADNA THAPA MD.FAMILY AT BEDSIDE,UPDATED WITH PT.CONDITION AND PLAN OF CARE.
[2021-04-24] MEDS: VANCOMYCIN IV 500 MG in IV DEXTROSE 5% 100 ML IV SCH (17:20)
[2021-04-24 18:58] LABS: CREATININE 1.4 mg/dL (0.6-1.3); POTASSIUM 4.1 mmol/L (3.5-5.1)
--- NOTE | 2021-04-24 19:40 | NUR ---
Pt is on a Mobley ventilator on settings of A/C 12, VT 500 and FIO2-60%. No resp. distress noted. BVM is at bedside. 7.5 ETT is patent and secure at approx. 22cm TANG. Pt to be monitored throughout the shift and PRN SX. Mobley alarm parameters have been checked and remain audible.
[2021-04-25] VITALS (74 sets, daily range): BP systolic 95–173; BP diastolic 51–101
[2021-04-25] MEDS: CEFTRIAXONE 2 G in IV DEXTROSE 5% 100 ML IV SCH ×2 (01:39→15:05)
[2021-04-25] MEDS: VANCOMYCIN IV 500 MG in IV DEXTROSE 5% 100 ML IV SCH (04:06)
[2021-04-25 05:27] LABS: MEAN CORPUSCULAR HEMOGLOBIN 25.8 uug (23.8-33.4); MEAN CORPUSCULAR VOLUME 80.5 fL (73.0-96.2); PLATELET COUNT (AUTO) 304 K/uL (152-348)
[2021-04-25 05:55] LABS: MAGNESIUM 2.5 mg/dL (1.8-2.4); PHOSPHOROUS 5.2 mg/dL (2.5-4.9)
[2021-04-25] MEDS ORDERED: NOREPINEPHRINE BITARTRATE 4 MG/4 ML VIAL IV ONE (06:03)
[2021-04-25 06:13] LABS: ABG BASE EXCESS -4.7 mmol/L; ABG HCO3 20.5 mmol/L; ABG PCO2 38.3 mmHg (35.0-45.0); ABG PH 7.347 (7.350-7.450); ABG PO2 267.1 mmHg (75.0-100.0); ABG SITE LEFT RADIAL; ABG TOTAL HEMOGLOBIN 10.5 G/dL (13.5-18.0); COHb 0.3 % (0.5-1.5); MetHb 0.4 % (0.0-1.5); O2Hb 98.9 % (94.0-97.0); VENT MODE VENT - A/C; VT, ABG 500 mL
[2021-04-25] MEDS: NYSTATIN SUSPENSION 5 ML LIQUID UDC PO SCH ×4 (06:53→23:44)
[2021-04-25] MEDS: SULFAMETH/TRIMETH 800/160 MG TABLET PO SCH ×3 (06:53→21:33)
[2021-04-25] MEDS: FLUCYTOSINE 250 MG CAPSULE PO SCH ×4 (06:54→23:43)
[2021-04-25 07:24] LABS: BAND % (MANUAL) 2 % (0-10); EOSINOPHILS % (MANUAL) 7 % (0-8); LYMPHOCYTES % (MANUAL) 5 % (20-40); MONOCYTES % (MANUAL) 3 % (2-10); NEUTROPHILS % (MANUAL) 83 % (42-75)
[2021-04-25] MEDS: NOREPINEPHRINE BITARTRATE 32 MG in IV NORMAL SALINE 218 ML IV PRN ×2 (08:30→18:36)
--- NOTE | 2021-04-25 08:34 | NUR ---
RT APNEA TEST DONE PT WAS PLACE ON 100% ON VENT PRE APNEA TEST FOR 30MIN. PT VITALS AND ABG WAS WITH IN NORMAL LIMITS. PT WAS TAKEN OFF VENT AND O2 TUBING WAS PLACE IN ET-TUBE AT 8LPM PER POLICY. PT SHOWS NO RESPIRATORY EFFORT DURING TEST NO GASPING OR MOVEMENT. PT WAS MONITOR FOR 10 MIN WITH MD AT BED SIDE VITALS WITH IN NORMAL RANGE. AFTER 10MIN ABG WAS DONE DRAWN PT WAS PLACE BACK ON VENT. RESULTS GIVEN TO MD PT REMAINS ON VENT AT THIS TIME.
--- NOTE | 2021-04-25 08:45 | NUR ---
Dr. Butterfield at bedside, apneic test done, ABG drawn. pt back on vent.
[2021-04-25 08:55] LABS: ABG BASE EXCESS -6.9 mmol/L; ABG HCO3 22.3 mmol/L; ABG PCO2 64.8 mmHg (35.0-45.0); ABG PH 7.154 (7.350-7.450); ABG PO2 569.4 mmHg (75.0-100.0); ABG SITE RIGHT RADIAL; ABG TOTAL HEMOGLOBIN 10.2 G/dL (13.5-18.0); COHb 0.3 % (0.5-1.5); MetHb 0.3 % (0.0-1.5); O2Hb 99.1 % (94.0-97.0); VENT MODE APNEA CHALLENGE
[2021-04-25] MEDS: ENSURE ENLIVE (VAN) 240 ML LIQUID PO SCH ×3 (09:00→17:00)
[2021-04-25] MEDS: Z GUARD REMEDY PASTE 57 GM TUBE TOP SCH ×2 (09:28→21:34)
[2021-04-25] MEDS: FAMOTIDINE. 20 MG/2 ML VIAL IV SCH ×2 (09:31→21:33)
[2021-04-25] MEDS: DESMOPRESSIN 4 MCG/1 ML VIAL IV SCH ×2 (10:56→21:34)
--- NOTE | 2021-04-25 11:00 | NUR ---
Dr. Phelps called and spoke to family, pt family at bedside.
[2021-04-25 11:25] LABS: POTASSIUM 3.9 mmol/L (3.5-5.1)
[2021-04-25] MEDS: IV NS 1000 ML 1,000 ML IV PRN (11:50)
[2021-04-25] MEDS: AMPHOTERICIN B LIPOSOME IV SCH (12:57)
[2021-04-25] MEDS: DEXTROSE 5% IV SCH (12:57)
--- NOTE | 2021-04-25 13:20 | NUR ---
made call to father, Clifton, to update family on pts status. per Hospitalist, family should come to say last goodbye. Dr. Lewis spoke to family as well, family agreeable extubation.
--- NOTE | 2021-04-25 19:35 | NUR ---
Pt is on a Mobley ventilator on settings of A/C 12, VT 500 and FIO2-50%. No resp. distress noted. BVM is at bedside. 7.5 ETT is patent and secure at approx. 22cm TANG. Pt to be monitored throughout the shift and PRN SX. Mobley alarm parameters have been checked and remain audible.
[2021-04-25] MEDS ORDERED: VANCOMYCIN IV 750 MG in IV DEXTROSE 5% 250 ML IV SCH (23:00)
[2021-04-26] VITALS (39 sets, daily range): BP systolic 50–168; BP diastolic 32–97
[2021-04-26] MEDS: CEFTRIAXONE 2 G in IV DEXTROSE 5% 100 ML IV SCH (01:14)
[2021-04-26] MEDS: IV NS 1000 ML 1,000 ML IV PRN (02:26)
[2021-04-26 05:12] LABS: HEMATOCRIT 23.8 % (36.7-47.1); MEAN CORPUSCULAR HEMOGLOBIN 25.4 uug (23.8-33.4); MEAN CORPUSCULAR VOLUME 79.5 fL (73.0-96.2); PLATELET COUNT (AUTO) 160 K/uL (152-348)
[2021-04-26 05:20] LABS: PHOSPHOROUS 3.6 mg/dL (2.5-4.9); POTASSIUM 3.6 mmol/L (3.5-5.1)
[2021-04-26 05:26] LABS: ABG BASE EXCESS -3.3 mmol/L; ABG HCO3 20.7 mmol/L; ABG PCO2 33.3 mmHg (35.0-45.0); ABG PH 7.411 (7.350-7.450); ABG PO2 164.7 mmHg (75.0-100.0); ABG SITE RIGHT RADIAL; ABG TOTAL HEMOGLOBIN 10.1 G/dL (13.5-18.0); COHb 0.3 % (0.5-1.5); O2Hb 98.9 % (94.0-97.0); VENT MODE VENT - A/C; VT, ABG 500 mL
[2021-04-26] MEDS: NYSTATIN SUSPENSION 5 ML LIQUID UDC PO SCH (05:32)
[2021-04-26] MEDS: SULFAMETH/TRIMETH 800/160 MG TABLET PO SCH (05:32)
[2021-04-26] MEDS: FLUCYTOSINE 250 MG CAPSULE PO SCH (06:00)
[2021-04-26] MEDS ORDERED: NOREPINEPHRINE BITARTRATE 8 MG in IV NORMAL SALINE 242 ML IV PRN (07:00)
--- NOTE | 2021-04-26 08:00 | NUR ---
Attending SALES CONSULTANT INSURANCE. Fermin Lewis in the unit to see and examine pt. at this time pt. code status changed to DNR with orders for terminal extubation and to wait for family to be at bedside for procedure. Orders to maintain pt. on levophed to make time for family to come. Patient also seen by Dr. Butterfield who is also aware of care plan. and as determined by both attending and machine operator helper pt. will not need any pain medication or any comfort measures as pt. is officially pronounced BD.
[2021-04-26] MEDS ORDERED: DC PROPOFOL ONCE EXTUBATED XX PRN (09:00)
--- NOTE | 2021-04-26 10:00 | NUR ---
Pt's father sister and nephew at bedside and at this time requesting to have a robotics technician present for last confession before pt terminal extubation. Nursing Filling Technician Danya informed to arrange visit as requested.
--- NOTE | 2021-04-26 10:20 | NUR ---
A call from Boiler Repairman and as informed body trimmer upholsterer will be here around 1100 Pt's family informed while they were in a meeting with community board member.
--- NOTE | 2021-04-26 11:15 | NUR ---
A call to [facility] report given to representative Swan and as stated patient is excluded from any organ donation and to call back with TOD. Reference # [id number].
--- NOTE | 2021-04-26 11:24 | NUR ---
Manager Operating at bedside and finish with ceremony at 1131.
--- NOTE | 2021-04-26 11:30 | NUR ---
warehouse insulation worker at bedside to speak with family.
--- NOTE | 2021-04-26 12:02 | NUR ---
With family at bedside and RT in the unit at this time pt. terminally extubated as ordered. Pt. previously r/o as an organ donor.
--- NOTE | 2021-04-26 12:15 | NUR ---
Patient apneic for 1 minute. pupils fixed and dilated. No audible heart sounds for 1 minute. No palpable pulses for 1 minute. No corneal reflexes. Patient pronounced at 1215 All disciplines involved informed. Addendum: 04/26/21 at 1311 by SUMANTH KOVACS RN There's a discrepancy of 3 minutes from monitor at bedside and central station pt'sathish DANG on ekg print out is 1212
--- NOTE | 2021-04-26 12:23 | NUR ---
A follow up call to [facility] collections representative JO informed of pt's time of . patient at 1215 family at bedside.
--- NOTE | 2021-04-26 13:09 | NUR ---
Clinical Social Work Note SW consult was request for resources and grief support. Patient is a 40 year old male. Patient is intubated and is not responsive. SW meet with patients father, sister, and nephew at bedside. SW provided family with home, cremation, cemetery, and burial resources. Resources included: [facility] [address] [place], [place] [id number] , [facility] [address] [place] [address] , and [facility] [address] [place], [place] [id number] . SW provided information about the process of the hospital of releasing the body to the crematory. SW provided grief support to family. Plan: SW will follow up with family to provide grief support if needed.
[2021-04-26 14:00] LABS: *HSV 1/2 PCR 1DNA CSF NEGATIVE; *HSV 1/2 PCR 2DNA CSF NEGATIVE
[2021-04-26] MEDS ORDERED: VANCOMYCIN IV 750 MG in IV DEXTROSE 5% 250 ML IV SCH (14:00)
--- NOTE | 2021-04-26 14:15 | NUR ---
post-mortem care provided ID band verified. Nursing cargo service supervisor informed that pt's body is ready to be knot picker cloth.
== END 2021-04-26 12:12 | DRG 890 ==
LOC: ER 07:07 → MEDSURG3 17:15 → CCU 04-23 17:40
PROVIDERS: ADMIT Nurse Practitioner Acute Care; ATTEND Hospitalist
PROC: 05HC33Z Insertion of Infusion Device into Left Basilic Vein, Percutaneous Approach (ICD-10-PCS; principal; 2021-04-18)
PROC: 009U3ZX Drainage of Spinal Canal, Percutaneous Approach, Diagnostic (ICD-10-PCS; 2021-04-21)
PROC: 0BH17EZ Insertion of Endotracheal Airway into Trachea, Via Natural or Artificial Opening (ICD-10-PCS; 2021-04-23)
PROC: 5A1945Z Respiratory Ventilation, 24-96 Consecutive Hours (ICD-10-PCS; 2021-04-23)
PROC: 02HV33Z Insertion of Infusion Device into Superior Vena Cava, Percutaneous Approach (ICD-10-PCS; 2021-04-24)
DX: A41.9 Sepsis, unspecified organism (principal); B20 Human immunodeficiency virus [HIV] disease; B45.1 Cerebral cryptococcosis; G93.6 Cerebral edema; R65.20 Severe sepsis without septic shock; I60.9 Nontraumatic subarachnoid hemorrhage, unspecified; J96.00 Acute respiratory failure, unspecified whether with hypoxia or hypercapnia; B49 Unspecified mycosis; B59 Pneumocystosis; G93.49 Other encephalopathy; J15.9 Unspecified bacterial pneumonia; I62.01 Nontraumatic acute subdural hemorrhage; I62.00 Nontraumatic subdural hemorrhage, unspecified; Z66 Do not resuscitate; Z51.5 Encounter for palliative care; D64.9 Anemia, unspecified; D75.839 Thrombocytosis, unspecified; E23.2 Diabetes insipidus; E46 Unspecified protein-calorie malnutrition; R64 Cachexia; E86.0 Dehydration; E87.1 Hypo-osmolality and hyponatremia; E86.1 Hypovolemia; F17.200 Nicotine dependence, unspecified, uncomplicated; K80.20 Calculus of gallbladder without cholecystitis without obstruction; Z68.1 Body mass index [BMI] 19.9 or less, adult; Z82.5 Family history of asthma and other chronic lower respiratory diseases; B37.0 Candidal stomatitis; B27 Infectious mononucleosis; Z91.018 Allergy to other foods
CPT/HCPCS: 36415; 36569; 36600; 70030-TC; 70450; 71045; 71250; 71275; 83605; 83615; 83735; 83930; 83935; 84100; 84157; 85025; 85730; 86480; 87040; 87070; 87086; 87205; 87328; 87400; 89051; 93005; 94002; 94003; 95819; A4663; G0378; J0289; J0330; J0696; J1100; J2405; J2597; J2765; J3370; J3475; J3480; J3490; J7030; J7050; J7060; J8597; Q0144; Q9967

== ENCOUNTER 2021-04-14 10:17 | Emergency (ER) | payer MEDICAID | END 2021-04-14 10:48 | disposition left against medical advice (07) | LOC: CANPREER → ER 10:46 | DX: Z53.21 Procedure and treatment not carried out due to patient leaving prior to being seen by health care provider (principal) ==